=== PATIENT | female | born 1955 | race Hispanic/Latino ===

== ENCOUNTER → 2025-04-19 | Outpatient (CLI) | payer MEDICARE, MEDICAID ==
--- NOTE | 2025-04-20 02:05 | HMCIMG ---
STUDY: X-RAY OF THE LEFT SHOULDER, 2 VIEWS HISTORY: Left shoulder pain. TECHNIQUE: Two views of the left shoulder are submitted for interpretation. COMPARISON: None provided. FINDINGS: Bones and joints: Mild osteopenia of the visualized osseous structures. Mild degenerative changes in the acromioclavicular and glenohumeral joints, characterized by joint space narrowing. No acute fracture, dislocation, or destructive osseous lesion is identified. Soft tissues: Periarticular soft tissues appear unremarkable. No radiopaque foreign body or abnormal soft tissue calcification is seen. IMPRESSION: * Mild osteopenia of the left shoulder. * Mild degenerative arthrosis of the acromioclavicular and glenohumeral joints with joint space narrowing, without radiographic evidence of acute fracture or dislocation. /[place]
--- NOTE | 2025-04-20 02:06 | HMCIMG ---
STUDY: X-RAY OF THE RIGHT SHOULDER, 2 VIEWS HISTORY: Right shoulder pain. TECHNIQUE: Two views of the right shoulder are submitted for interpretation. COMPARISON: None provided. FINDINGS: Bones and joints: Mild osteopenia of the visualized osseous structures. Mild degenerative changes are present in the acromioclavicular and glenohumeral joints, characterized by joint space narrowing. No acute fracture, dislocation, or destructive osseous lesion is identified. Soft tissues: Periarticular soft tissues appear unremarkable. No radiopaque foreign body or abnormal soft tissue calcification is seen. IMPRESSION: * Mild osteopenia of the right shoulder. * Mild degenerative arthrosis of the acromioclavicular and glenohumeral joints with joint space narrowing, without radiographic evidence of acute fracture or dislocation. /[place]
--- NOTE | 2025-04-20 02:06 | HMCIMG ---
STUDY: X-RAY OF THE CERVICAL SPINE, 5 VIEWS HISTORY: Cervicalgia. TECHNIQUE: Five views of the cervical spine are submitted for interpretation. COMPARISON: None provided. FINDINGS: Bones and joints: Normal cervical lordosis is maintained. Vertebral body heights are preserved without evidence of acute compression fracture or spondylolisthesis. There is diffuse osteopenia. Multilevel degenerative changes are present, characterized by endplate osteophytic spurring and intervertebral disc height loss at multiple cervical levels. No aggressive lytic or sclerotic lesion is identified. Soft tissues: Prevertebral soft tissues are within normal limits in thickness. No abnormal soft tissue calcification or radiopaque foreign body is seen. IMPRESSION: * Cervical spondylosis with multilevel endplate osteophytes and intervertebral disc height loss, compatible with degenerative disc disease. * Diffuse osteopenia of the cervical spine, which may increase susceptibility to insufficiency or compression fractures; correlate with bone mineral density assessment as clinically indicated. * No radiographic evidence of acute cervical fracture, spondylolisthesis, or prevertebral soft tissue swelling. /[place]
== END | disposition home or self-care (01) ==
LOC: RAH 13:07
PROVIDERS: ATTEND Physical Medicine & Rehabilitation
DX: M19.011 Primary osteoarthritis, right shoulder (principal); M19.012 Primary osteoarthritis, left shoulder; M85.812 Other specified disorders of bone density and structure, left shoulder; M85.811 Other specified disorders of bone density and structure, right shoulder; M25.78 Osteophyte, vertebrae; M85.88 Other specified disorders of bone density and structure, other site; M47.22 Other spondylosis with radiculopathy, cervical region; M50.10 Cervical disc disorder with radiculopathy, unspecified cervical region
CPT/HCPCS: 72050; 73030